=== PATIENT | female | born 1940 | race Caucasian/White ===

== ENCOUNTER 2018-01-17 08:48 | Emergency (ER) | payer MEDICARE, BC ==
[~2018-01-17] VITALS: Ht 157.5 cm; Wt 51.2 kg
[~2018-01-17 08:48] MED LIST: ATEN-102 PO; LISI-360 PO; NORV5TAB PO; PRAV40TA2 PO
[2018-01-17 08:59] VITALS: BP 148/71; PULSE 93; RESP 16; TEMP 97.6; O2SAT 99
[2018-01-17 09:14] LABS: AUTOMATED NEUTROPHIL # 3.4 TH/MM3 (1.8-7.7); BASOPHIL # 0.1 TH/MM3 (0-0.2); BASOPHIL % 1.6 % (0.0-2.0); EOSINOPHIL % 0.5 % (0.0-4.0); HEMATOCRIT 42.2 % (35.0-46.0); HEMOGLOBIN 14.3 GM/DL (11.6-15.3); LYMPH % 29.3 % (9.0-44.0); LYMPHOCYTE # 1.7 TH/MM3 (1.0-4.8); MEAN CELL VOLUME 94.7 FL (80.0-100.0); MEAN CORPUSCULAR HEMOGLOBIN 32.1 PG (27.0-34.0); MEAN CORPUSCULAR HGB CONC 33.9 % (32.0-36.0); MEAN PLATELET VOLUME 8.1 FL (7.0-11.0); MONO % 9.8 % (0.0-8.0); MONOCYTE # 0.6 TH/MM3 (0-0.9); NEUT % 58.8 % (16.0-70.0); PLATELET COUNT 274 TH/MM3 (150-450); RED BLOOD COUNT 4.46 MIL/MM3 (4.00-5.30); RED CELL DISTRIBUTION WIDTH 12.7 % (11.6-17.2); WHITE BLOOD COUNT 5.9 TH/MM3 (4.0-11.0)
[2018-01-17] MEDS ORDERED: NITROGLYCERIN 2% OINT 1 GM PACKET TOP ONE (09:15)
[2018-01-17] MEDS ORDERED: SODIUM CHLORIDE 0.9% FLUSH 10 ML FLUSH IVF PRN (09:15)
[2018-01-17] MEDS ORDERED: CENTCHW4 CHEW (09:16)
[2018-01-17] MEDS ORDERED: CALC1TAB12 PO (09:16)
[2018-01-17] MEDS ORDERED: VITA100T10 (09:16)
[2018-01-17] MEDS ORDERED: PLAV75TA29 PO (09:16)
[2018-01-17] MEDS ORDERED: AMLO5TAB2 PO (09:16)
[2018-01-17] MEDS ORDERED: ATEN25TA PO (09:16)
[2018-01-17] MEDS ORDERED: FISHCAP4 PO (09:16)
[2018-01-17] MEDS ORDERED: PRAV40TA2 PO (09:16)
[2018-01-17] MEDS ORDERED: CYAN100025 SL (09:16)
[2018-01-17] MEDS ORDERED: BENA10TA PO (09:16)
[2018-01-17 09:29] LABS: PROTHROMBIN TIME - PATIENT 10.1 SEC (9.8-11.6)
--- NOTE | 2018-01-17 09:36 | RADRPT ---
EXAM DATE/TIME: 01/17/2018 09:21 [facility] COMPARISON: No previous studies available for comparison. INDICATIONS : Chest pain with nausea this AM MEDICAL HISTORY : Hypertension. SURGICAL HISTORY : None. ENCOUNTER: Initial ACUITY: 1 day PAIN SCORE: 9/10 LOCATION: Bilateral chest FINDINGS: PA lateral views of the chest demonstrate complete opacification of the left hemithorax. No aerated l ambrose is identified. There is mild mass effect on the mediastinum with slight shift of the mediastinum to the right. The right lung demonstrates small areas of basilar airspace opacity predominantly withi n the lung apices. The osseous structures demonstrate diffuse osteopenia and degenerative change. CONCLUSION: Complete opacification of the left hemithorax. Scattered areas of basilar airspace opacity overlying the right hemithorax. Consider further evaluation with contrast-enhanced CT to evaluate for underlyin g obstruction. Mulu Fields MD on January 17, 2018 at 9:32 Board Certified Radiologist. This report was verified electronically.
--- NOTE | 2018-01-17 09:44 | PD ---
HPI . Chest pain Chief Complaint: Chest Pain Time Seen by Provider: 08:56 Travel History International Travel<30 days: No Contact w/Intl Traveler<30days: No Traveled to known affect area: No History of Present Illness HPI This patient presents with the chief complaint of chest pain. Onset was at 3 AM and lasted about an hour. She describes midsternal chest pain with no radiation. The pain awakened her from sleep. It is associated with nausea but no diaphoresis and no shortness of breath. The patient does admit that she has had a chronic cough for many months. It is getting progressively worse. She has been seen by her primary care provider for the cough and the etiology of the cough has not yet been determined. It is a dry cough. It is not associated with fever. Not associated with shortness of breath. 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 PFSH Past Medical History Hx Anticoagulant Therapy: Yes (PLAVIX) Cardiovascular Problems: Yes (HTN, CHOL) High Cholesterol: Yes Diabetes: No Diminished Hearing: Yes ([place]) Hypertension: Yes Tetanus Vaccination: Unknown ?: Not Past Surgical History Eye Surgery: Yes (implants) Hysterectomy: Yes Social History Alcohol Use: Yes (2 GLASSES OF WINE DAILY) Tobacco Use: No Substance Use: No Allergies-Medications (Allergen,Severity, Reaction): Coded Allergies: aspirin (Unverified Allergy, Severe, HEART RATE INCREASES, 01/17/18) Reported Meds & Prescriptions Reported Meds & Active Scripts Active Reported Calcium 500 +D (Calcium Carbonate-Cholecalciferol) 500-400 Mg-Unit Tab 1 Tab PO BID Centrum (Multiple Vitamins W/ Minerals) 1 Chew 1 Tab CHEW DAILY B6 Natural (Pyridoxine HCl) 100 Mg Tab B-12 (Cyanocobalamin) 1,000 Mcg Subl 1,000 Mcg SL DAILY Fish Oil + D3 (Fish Oil-Cholecalciferol) 1,200-1,000 Mg-Unit Cap 2 Cap PO DAILY Pravastatin 40 Mg Tab 40 Mg PO DAILY Atenolol 25 Mg Tab 25 Mg PO DAILY Benazepril (Benazepril HCl) 10 Mg Tab 10 Mg PO DAILY Amlodipine (Amlodipine Besylate) 5 Mg Tab 5 Mg PO DAILY Plavix (Clopidogrel Bisulfate) 75 Mg Tab 75 Mg PO QOD Review of Systems Except as stated in HPI: all other systems reviewed are Neg General / Constitutional: Positive: Weight Loss (approximately 10 pounds since her in August), No: Fever, Chills Cardiovascular: Positive: Chest Pain or Discomfort Respiratory: Positive: Cough, No: Shortness of Breath Gastrointestinal: Positive: Nausea, No: Vomiting Physical Exam Narrative GENERAL: Awake and alert and in no acute distress. SKIN: Warm and dry. Normal color. HEAD: Normocephalic/atraumatic. EYES: Pupils are equal. Extraocular movements are intact. ENT: Mucous membranes pink and moist. NECK: Normal range of motion. CARDIOVASCULAR: Regular rate and rhythm. Heart sounds normal. RESPIRATORY: Nonlabored respirations. No breath sounds heard on the left. MUSCULOSKELETAL: Atraumatic. She is wearing compressive stockings. She has trace pretibial edema. NEUROLOGICAL: Nonfocal. PSYCHIATRIC: Appropriate mood and affect. Data Data Last Documented VS Vital Signs Date Time Temp Pulse Resp B/P (MAP) Pulse Ox O2 Delivery O2 Flow Rate FiO2 01/17/18 09:56 16 98 Room Air 01/17/18 09:55 72 01/17/18 08:59 97.6 Orders Orders Basic Metabolic Panel (Bmp) (01/17/18 09:03) Complete Blood Count With Diff (01/17/18 09:03) Magnesium (Mg) (01/17/18 09:03) Prothrombin Time / Inr (Pt) (01/17/18 09:03) Act Partial Throm Time (Ptt) (01/17/18 09:03) Troponin I (01/17/18 09:03) Ecg Monitoring (01/17/18 09:03) Iv Access Insert/Monitor (01/17/18 09:03) Oximetry (01/17/18 09:03) Nitroglycerin 2% Oint (Nitroglycerin 2% (01/17/18 09:15) Sodium Chloride 0.9% Flush (Ns Flush) (01/17/18 09:15) Chest, Pa & Lat (01/17/18 09:03) Ct Thorax/ Chest W Iv Contrast (01/17/18 09:38) Iohexol 350 Inj (Omnipaque 350 Inj) (01/17/18 10:26) Labs Laboratory Tests Test 01/17/18 09:00 White Blood Count 5.9 TH/MM3 Red Blood Count 4.46 MIL/MM3 Hemoglobin 14.3 GM/DL Hematocrit 42.2 % Mean Corpuscular Volume 94.7 FL Mean Corpuscular Hemoglobin 32.1 PG Mean Corpuscular Hemoglobin Concent 33.9 % Red Cell Distribution Width 12.7 % Platelet Count 274 TH/MM3 Mean Platelet Volume 8.1 FL Neutrophils (%) (Auto) 58.8 % Lymphocytes (%) (Auto) 29.3 % Monocytes (%) (Auto) 9.8 % Eosinophils (%) (Auto) 0.5 % Basophils (%) (Auto) 1.6 % Neutrophils # (Auto) 3.4 TH/MM3 Lymphocytes # (Auto) 1.7 TH/MM3 Monocytes # (Auto) 0.6 TH/MM3 Eosinophils # (Auto) 0.0 TH/MM3 Basophils # (Auto) 0.1 TH/MM3 CBC Comment DIFF FINAL Differential Comment Prothrombin Time 10.1 SEC Prothromb Time International Ratio 1.0 RATIO Activated Partial Thromboplast Time 26.3 SEC Blood Urea Nitrogen 5 MG/DL Creatinine 0.77 MG/DL Random Glucose 120 MG/DL Calcium Level 9.0 MG/DL Magnesium Level 2.1 MG/DL Sodium Level 131 MEQ/L Potassium Level 4.1 MEQ/L Chloride Level 95 MEQ/L Carbon Dioxide Level 26.4 MEQ/L Anion Gap 10 MEQ/L Estimat Glomerular Filtration Rate 72 ML/MIN Troponin I LESS THAN 0.02 NG/ML MDM Medical Decision Making Medical Screen Exam Complete: Yes Emergency Medical Condition: Yes Medical Record Reviewed: Yes (past medical history of hypertension. She has had very few visits here in the past. She has had no previous chest x-rays.) Interpretation(s) EKG shows a sinus rhythm with no acute ST segment elevation or depression. EKG is unchanged from previous. Differential Diagnosis Differential diagnosis of chest pain includes but is not limited to musculoskeletal pain, pulmonary embolism, acute coronary syndrome, pneumonia, pleurisy Narrative Course This patient presents with a brief history of chest pain. It lasted approximately one hour in the wee hours of the morning. It spontaneously completely resolved. Cardiac workup was initiated. The patient reports an allergy to aspirin. It makes her mouth swell. Therefore, aspirin was not ordered. I did, however, ordered Nitropaste. Chest x-ray shows complete whiteout of the left lung. The radiologist recommended CT of her chest with contrast for further evaluation. This has been ordered. CBC & BMP Diagram 01/17/18 09:00 Calcium Level 9.0, Magnesium Level 2.1 trop < 0.02 CT>>Large left-sided pleural effusion completely compressing the left upper lobe and left lower lobe. Multiple rounded and mildly irregular noncalcified nodules identified throughout the right hemithorax. Given the random distribution differential diagnosis includes metastatic disease TB or fungal infection. Small pericardial effusion. The results of the CT were discussed with the patient and her daughter. I recommended admission to the hospital for further evaluation including diagnostic thoracentesis. The patient has refused admission. She states that she does have a primary care physician that she can follow up with quickly. Diagnosis Primary Impression: Chest pain Qualified Codes: R07.9 - Chest pain, unspecified Patient Instructions: General Instructions, Pulmonary Nodules (DC) Additional Instructions: See your primary care provider as soon as possible to arrange for further evaluation Disposition: 01 DISCHARGE HOME Condition: Stable Betsey Cortés MD Jan 17, 2018 09:44
[2018-01-17 09:51] LABS: BICARBONATE 26.4 MEQ/L (21.0-32.0)
[2018-01-17 09:54] LABS: GLUCOSE,RANDOM 120 MG/DL (74-106); MAGNESIUM 2.1 MG/DL (1.5-2.5)
[2018-01-17 09:55] VITALS: BP 129/68; PULSE 72; RESP 16; O2SAT 98
[2018-01-17 09:56] VITALS: RESP 16; O2SAT 98
[2018-01-17 09:57] LABS: CHLORIDE 95 MEQ/L (98-107); CREATININE 0.77 MG/DL (0.50-1.00); GLOMERULAR FILTRATION RATE 72 ML/MIN (>89); SODIUM (NA) 131 MEQ/L (136-145)
[2018-01-17 09:59] LABS: TROPONIN I LESS THAN 0.02 NG/ML (0.02-0.05)
[2018-01-17 10:06] LABS: BLOOD UREA NITROGEN 5 MG/DL (7-18)
[2018-01-17] MEDS ORDERED: IOHEXOL 350 MG/ML 10 ML VIAL (for RAD DIAG) IVCONTRAST ONE (10:26)
--- NOTE | 2018-01-17 10:50 | RADRPT ---
EXAM DATE/TIME: 01/17/2018 10:17 This report includes an Addendum and supersedes previous reports for this exam. [facility] COMPARISON: CHEST PA & LAT, January 17, 2018, 9:21. INDICATIONS : Mid sternal chest pain. Abnormal chest xray. IV CONTRAST: 50 cc Omnipaque 350 (iohexol) IV RADIATION DOSE: 6.32 CTDIvol (mGy) MEDICAL HISTORY : Hypercholesterolemia. Hypertension. SURGICAL HISTORY : Hysterectomy. ENCOUNTER: Initial ACUITY: 1 day PAIN SCALE: 4/10 LOCATION: chest TECHNIQUE: Volumetric scanning of the chest was performed. Using automated exposure control and adjustment of the mA and/or kV according to patient size, radiation dose was kept as low as reasonab ly achievable to obtain optimal diagnostic quality images. DICOM format image data is available vilma ctronically for review and comparison. Follow-up recommendations for detected pulmonary nodules are based at a minimum on nodule size and pa tient risk factors according to Fleischner Society Guidelines. FINDINGS: LUNGS: The left hemithorax is completely opacified with a large pleural effusion. There is comple te compressive atelectasis of the left upper lobe and left lower lobe without visible obstructing mas s. The right hemithorax is significant for multiple noncalcified pulmonary nodules measuring between 2-3 mm in size with larger nodules identified in the lung bases measuring up to 1 cm in size. The dis tribution is diffuse throughout the lungs but more significant within the lower lobe. PLEURA: Large left-sided pleural effusion. MEDIASTINUM: The heart and great vessels demonstrate no acute abnormality. There is no mediastin al or hilar lymphadenopathy. Small pericardial effusion present. AXILLAE: Within normal limits. No lymphadenopathy. SKELETAL: Within normal limits for patient age. MISCELLANEOUS: The visualized upper abdominal organs demonstrate no acute abnormality. CONCLUSION: Large left-sided pleural effusion completely compressing the left upper lobe and left lower lobe. Multiple rounded and mildly irregular noncalcified nodules identified throughout the rig ht hemithorax. Given the random distribution differential diagnosis includes metastatic disease TB or fungal infection. Small pericardial effusion. Mulu Fields MD on January 17, 2018 at 10:31 Board Certified Radiologist. This report was verified electronically. ADDENDUM: This report is amended to address the presence of a small pericardial effusion. The remainder of the report is unchanged. Mulu Fields MD on January 17, 2018 at 10:54 Board Certified Radiologist. This report was verified electronically.
--- NOTE | 2018-01-18 11:46 | EKG ---
Date Performed: 01/17/2018 Time Performed: 09:00:35 PTAGE: 77 years EKG: Sinus rhythm LOW QRS VOLTAGE IN PRECORDIAL LEADS SEPTAL MYOCARDIAL INFARCTION ABNORMAL ECG Since the PREVIOUS TRACING , no significant change noted PREVIOUS TRACIN03/05/2015 09.25 DOCTOR: Candi Wilson Interpretating Date/Time 01/18/2018 11:44:44
== END 2018-01-17 11:47 | disposition home or self-care (01) ==
LOC: PHED 08:48
DX: R07.9 Chest pain, unspecified (principal); R11.0 Nausea; R05 Cough; Z79.01 Long term (current) use of anticoagulants; I10 Essential (primary) hypertension; R94.31 Abnormal electrocardiogram [ECG] [EKG]; Z88.6 Allergy status to analgesic agent
CPT/HCPCS: 71046; 71260; 80048; 83735; 84484; 85025; 85610; 85730; 93005; 99285; Q9967

== ENCOUNTER 2018-01-22 07:40 | Day surgery (SDC) | payer MEDICARE, BC ==
--- NOTE | 2018-01-21 10:10 | MH ---
cc: Jermaine Zee MD, Samira DATE OF ADMISSION: 01/22/2018 CHIEF COMPLAINT: The patient will come for ultrasound-guided left thoracentesis. HISTORY OF PRESENT ILLNESS: Ms. Colvin is a 77-year-old female with history of left chest pain going on for a few weeks. The patient was seen at [facility]. She had a CT scan of the chest done, which shows that she has a large left pleural effusion with atelectasis. She has multiple rounded and irregular, noncalcified nodules identified throughout the right hemithorax. Differential diagnosis includes metastatic disease or infectious process. PAST MEDICAL HISTORY: Hypertension, hysterectomy. MEDICATIONS: She is taking Plavix, amlodipine, atenolol and pravastatin. ALLERGIES: NO KNOWN DRUG ALLERGIES. SOCIAL HISTORY: She has no significant smoking. She takes a couple glasses of anastacio. 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 She is a , lives alone. She has 3 children, has 2 brothers, 2 sisters, both . Both parents are . REVIEW OF SYSTEMS: She has lost some weight. Complains of fatigue, shortness of breath, easy bruising. PHYSICAL EXAMINATION: GENERAL: Thin, elderly female, not in any acute distress. VITAL SIGNS: Blood pressure 120/70, heart rate 70, respirations 16, weight 107-110 pounds, oxygen saturation 97%. HEENT: Pupils are equal and reactive to light. Oral mucosa and nasal mucosa normal. NECK: Supple, no JVP noted. CHEST: She has dull percussion with decreased breath sounds on the left side. CARDIOVASCULAR: S1, S2 normal. ABDOMEN: Soft, nondistended. Bowel sounds are present. EXTREMITIES: No edema. IMPRESSION: 1. Large left pleural effusion. 2. Multiple lung nodules. 3. Atelectasis. 4. Hypertension. 5. Carotid artery disease. PLAN: I discussed with the patient and her, she will need thoracentesis for both diagnostic and therapeutic. I explained to her the procedure and the complications, including complication of anesthesia, pneumothorax requiring chest tube, bleeding, complication, injury to the blood vessel, lungs, nose, arrhythmia, hypoxia, which she understands well and wants to proceed with it. She is taking Plavix 75 mg every other day, which she is going to hold it and she understands that she will be at increased risk of thromboembolic events while she is off Plavix. She will be scheduled for thoracentesis at [facility]. Please followup in 2 weeks. MD TABITHA Ross/BECK , 11:02 PM , 12:23 AM
[~2018-01-22 07:40] MED LIST changes: +AMLO5TAB2 PO; -ATEN-102 PO; +ATEN25TA PO; +BENA10TA PO; +CALC1TAB12 PO; +CENTCHW4 CHEW; +CYAN100025 SL; +FISHCAP4 PO; -LISI-360 PO; -NORV5TAB PO; +PLAV75TA29 PO; +VITA100T10
[2018-01-22 10:05] VITALS: BP 155/87; PULSE 76; RESP 22; TEMP 96.3; O2SAT 93
[2018-01-22] MEDS ORDERED: MORPHINE SULFATE 4 MG/ML INJ ONE (10:13)
--- NOTE | 2018-01-22 10:14 | RADRPT ---
EXAM DATE/TIME: 01/22/2018 09:51 [facility] COMPARISON: CHEST PA & LAT, January 17, 2018, 9:21. CT THORAX W CONTRAST, January 17, 2018, 10:17. INDICATIONS : Post thoracentesis. Evaluate for pneumothorax. MEDICAL HISTORY : Hypertension. SURGICAL HISTORY : None. ENCOUNTER: Subsequent ACUITY: 1 day PAIN SCORE: 10/10 LOCATION: Left chest FINDINGS: There is persistent near-complete opacification of the left hemithorax with associated volume loss. N o significant pneumothorax. Redemonstration of multiple nodules throughout the right lung. Cardiome s tomach contours are within normal limits. Bony thorax are intact. CONCLUSION: 1. No significant pneumothorax status post thoracentesis. 2. Persistent left lung collapse with diffuse opacification of the left hemithorax. Steve Alfaro MD on January 22, 2018 at 10:09 Board Certified Radiologist. This report was verified electronically.
[2018-01-22 10:15] VITALS: BP 160/84; PULSE 71; RESP 20; O2SAT 97
[2018-01-22] MEDS ORDERED: MORPHINE SULFATE 2 MG/ML INJ IV ONE (10:15)
[2018-01-22] MEDS ORDERED: LIDOCAINE HCL 1% 20 ML VIAL ONE (10:15)
[2018-01-22 10:45] VITALS: BP 144/75; PULSE 75; RESP 20; O2SAT 98
[2018-01-22] MEDS ORDERED: MORPHINE SULFATE 2 MG/ML INJ IV PUSH ONE (10:45)
[2018-01-22 11:14] LABS: GLUCOSE,PLEURAL FLUID LESS THAN 1 MG/DL
[2018-01-22 11:17] LABS: TOTAL PROTEIN,PLEURAL FLUID 8.1 GM/DL
[2018-01-22] MEDS ORDERED: ACETAMINOPHEN/HYDROcodone 325 MG/10 MG TAB PO ONE (12:30)
[2018-01-22 13:42] LABS: PLEURAL FLUID HISTIOCYTES 74 %; PLEURAL FLUID LYMPHS 8 %; PLEURAL FLUID MESOTHELIAL 1 %; PLEURAL FLUID POLYS (SEGS) 17 %
[2018-01-22 13:43] LABS: PLEURAL FLUID WBC 671 /MM3 (0-10)
[2018-01-22 13:44] LABS: PLEURAL FLUID RBC 3998 /MM3 (0-0)
--- NOTE | 2018-01-22 14:35 | RADRPT ---
EXAM DATE/TIME: 01/22/2018 08:29 [facility] COMPARISON: No previous studies available for comparison. INDICATIONS : Left pleural effusion. MEDICAL HISTORY : Hypercholesterolemia. Hypertension. SURGICAL HISTORY : Hysterectomy. ENCOUNTER: Initial ACUITY: 1 week PAIN SCORE: 6/10 LOCATION: Left chest FLUID: Total volume of 700 cc of Cloudy brown fluid was removed. Fluid was sent to lab for ordered studies. TECHNIQUE: 1. Ultrasound guidance for thoracentesis. 2. Thoracentesis. The risks, benefits, and alternatives to ultrasound guided thoracentesis were explained to the patien t in lay simple terms, including the risk of bleeding and infection. Written and verbal informed con sent was obtained. Appropriate area for thoracentesis was marked under ultrasound guidance with the patient in the uprig ht position. Overlying skin was prepped and draped in the usual sterile fashion and with local anest hetic, a dermatotomy was made with an 11 blade scalpel. A 6 Chinese thoracentesis catheter was placed in the pleural space and fluid was removed. Catheter was then removed and a sterile dressing applie d. There were no immediate complications. The patient tolerated the procedure well and the left the ultrasound suite in stable condition. Chest radiograph is to be obtained. CONCLUSION: Uncomplicated ultrasound guided thoracentesis. Sanjeev Alvarez MD on January 22, 2018 at 14:32 Board Certified Radiologist. This report was verified electronically.
== END 2018-01-22 13:15 | disposition home or self-care (01) ==
LOC: HRAD 07:40 → HRIP 07:47 → HRAD 13:15
PROVIDERS: ATTEND Specialist
DX: J90 Pleural effusion, not elsewhere classified (principal); E78.00 Pure hypercholesterolemia, unspecified; I10 Essential (primary) hypertension; J98.11 Atelectasis; Z79.899 Other long term (current) drug therapy
CPT/HCPCS: 32555; 71045; 82945; 83615; 84157; 87015; 87070; 87116; 87205; 87206; 88112; 88305; 89051; C1729; J2270